=== PATIENT | male | born 1970 | race Caucasian/White ===

== ENCOUNTER 2021-03-03 20:52 | Inpatient (IN) | payer OTHER ==
[~2021-03-03] VITALS: Ht 182.9 cm; Wt 97.5 kg
[2021-03-03 21:18] LABS: HEMOGLOBIN 15.1 gm/dl (14.0-17.5); RED BLOOD COUNT 5.02 M/UL (4.20-5.50); WHITE BLOOD COUNT 15.1 K/UL (4.5-11.0)
[2021-03-03 21:46] LABS: BUN/CREATININE RATIO 23 (0-10)
[2021-03-04] MEDS ORDERED: PROAIR HFA8.5 GM INH (01:15)
[2021-03-04] MEDS ORDERED: ZESTRIL/PRINIVI10 MG PO (01:16)
[2021-03-04] MEDS ORDERED: PRAVASTATIN SOD20 MG PO (01:16)
[2021-03-04] MEDS ORDERED: LEVOTHYROXINE50 MC1 PO (01:17)
[2021-03-04 04:30] LABS: HEMOGLOBIN 14.3 gm/dl (14.0-17.5); RED BLOOD COUNT 4.84 M/UL (4.20-5.50); WHITE BLOOD COUNT 15.8 K/UL (4.5-11.0)
[2021-03-04 04:59] LABS: BUN/CREATININE RATIO 27 (0-10)
[2021-03-05 07:03] LABS: HEMOGLOBIN 13.5 gm/dl (14.0-17.5); RED BLOOD COUNT 4.57 M/UL (4.20-5.50); WHITE BLOOD COUNT 12.6 K/UL (4.5-11.0)
[2021-03-05 08:01] LABS: BUN/CREATININE RATIO 37 (0-10)
[2021-03-05] MEDS ORDERED: LOPRESSOR 25 MG25 MG PO ×2 (09:54→09:57)
[2021-03-05] MEDS ORDERED: ASPIRIN EC81 MG PO (09:54)
[2021-03-05] MEDS ORDERED: CRESTOR 10 MG T10 MG PO (09:54)
[2021-03-05] MEDS ORDERED: BRILINTA 90 MG90 MG PO (09:54)
== END 2021-03-05 12:05 | disposition home or self-care (01) | DRG 247 ==
LOC: ER1 20:52 → CDU 22:33 → PROG CARE 22:33
PROVIDERS: Family Medicine; Internal Medicine; ADMIT Internal Medicine
PROC: 027034Z Dilation of Coronary Artery, One Artery with Drug-eluting Intraluminal Device, Percutaneous Approach (ICD-10-PCS; principal; 2021-03-03)
PROC: 4A023N7 Measurement of Cardiac Sampling and Pressure, Left Heart, Percutaneous Approach (ICD-10-PCS; 2021-03-03)
PROC: B2111ZZ Fluoroscopy of Multiple Coronary Arteries using Low Osmolar Contrast (ICD-10-PCS; 2021-03-03)
DX: I21.4 Non-ST elevation (NSTEMI) myocardial infarction (principal); I10 Essential (primary) hypertension; E78.5 Hyperlipidemia, unspecified; F17.210 Nicotine dependence, cigarettes, uncomplicated; Z20.822 Contact with and (suspected) exposure to COVID-19; I25.10 Atherosclerotic heart disease of native coronary artery without angina pectoris; E78.00 Pure hypercholesterolemia, unspecified; J44.9 Chronic obstructive pulmonary disease, unspecified; E03.9 Hypothyroidism, unspecified; Z82.49 Family history of ischemic heart disease and other diseases of the circulatory system; Z79.01 Long term (current) use of anticoagulants; Z79.82 Long term (current) use of aspirin; Z90.49 Acquired absence of other specified parts of digestive tract
CPT/HCPCS: 36415; 71045; 80048; 80053; 80061; 82550; 82553; 83735; 83874; 84439; 84443; 84484; 85025; 85610; 85730; 86140; 93005; 94664; 94760; 99285; C1725; C1769; C1874; C1887; C9600; J0461; J0583; J1644; J2250; J3010; J7040; Q9967; U0002

== ENCOUNTER 2021-05-07 21:13 | Observation (INO) | payer OTHER ==
[~2021-05-07] VITALS: Ht 188 cm; Wt 98.0 kg
[~2021-05-07 21:13] MED LIST: ASPIRIN EC81 MG PO; BRILINTA 90 MG90 MG PO; CRESTOR 10 MG T10 MG PO; LEVOTHYROXINE50 MC1 PO; LOPRESSOR 25 MG25 MG PO; PRAVASTATIN SOD20 MG PO; PROAIR HFA8.5 GM INH; ZESTRIL/PRINIVI10 MG PO
[2021-05-07 22:27] LABS: HEMOGLOBIN 14.8 gm/dl (14.0-17.5); RED BLOOD COUNT 4.99 M/UL (4.20-5.50)
[2021-05-07 22:53] LABS: BUN/CREATININE RATIO 16 (0-10)
[2021-05-08] MEDS ORDERED: METOPROLOL SUCC25 MG PO (01:12)
[2021-05-08] MEDS ORDERED: PRAVASTATIN SOD20 MG PO (01:12)
[2021-05-08] MEDS ORDERED: ISOSORBIDE MONO30 MG PO (14:05)
== END 2021-05-08 15:38 | disposition home or self-care (01) ==
LOC: ER1 21:13 → CDU 23:13 → MED SURG 4 23:13
PROVIDERS: Emergency Medicine; ADMIT Internal Medicine
DX: R07.89 Other chest pain (principal); I25.10 Atherosclerotic heart disease of native coronary artery without angina pectoris; I10 Essential (primary) hypertension; I25.2 Old myocardial infarction; J44.9 Chronic obstructive pulmonary disease, unspecified; J96.11 Chronic respiratory failure with hypoxia; E78.5 Hyperlipidemia, unspecified; E03.9 Hypothyroidism, unspecified; Z20.822 Contact with and (suspected) exposure to COVID-19; Z95.5 Presence of coronary angioplasty implant and graft; Z99.81 Dependence on supplemental oxygen; Z87.891 Personal history of nicotine dependence; Z79.82 Long term (current) use of aspirin; Z79.899 Other long term (current) drug therapy
CPT/HCPCS: 36415; 71045; 80053; 80061; 82550; 82553; 83036; 83874; 84484; 84550; 85025; 93005; 94640; 94664; 94760; 96372; 99285; G0378; J1650; U0002

== ENCOUNTER → 2021-10-06 | Outpatient (CLI) | payer OTHER ==
[~2021-10-06] MED LIST changes: +ISOSORBIDE MONO30 MG PO; +METOPROLOL SUCC25 MG PO
== END ==
LOC: HEART 5 13:53
DX: J44.9 Chronic obstructive pulmonary disease, unspecified (principal)
CPT/HCPCS: 94060; 94729

== ENCOUNTER 2022-03-23 23:51 | Observation (INO) | payer OTHER ==
[~2022-03-23] VITALS: Ht 190.5 cm; Wt 95.3 kg
[~2022-03-23 23:51] MED LIST changes: +COMBIVENT RESPIM4 GM INH; +LEVOTHYROXINE112 MCG PO; -LEVOTHYROXINE50 MC1 PO; +LIPITOR80 MG PO; +METOPROLOL TART25 MG PO; +NEOSPORIN OINT15 GM TOP; +NITROGLYCERIN0.4 MG SL; +OMNICEF 300 MG300 MG PO; +PRAVASTATIN SOD10 MG PO; +TRELEGY ELLIPT1 EACH INH; +ZESTRIL2.5 MG PO; +ZITHROMAX500 MG PO
[2022-03-24 00:07] LABS: HEMOGLOBIN 14.8 gm/dl (14.0-17.5); RED BLOOD COUNT 5.08 M/UL (4.20-5.50); WHITE BLOOD COUNT 10.4 K/UL (4.5-11.0)
[2022-03-24 00:30] LABS: BUN/CREATININE RATIO 15 (0-10)
[2022-03-24] MEDS ORDERED: METOPROLOL TART25 MG PO (09:20)
[2022-03-24] MEDS ORDERED: PRAVASTATIN SOD20 MG PO (09:21)
[2022-03-24] MEDS ORDERED: PROTONIX 40 MG40 M1 PO (09:21)
[2022-03-24] MEDS ORDERED: ROBAXIN 750 MG750 MG PO (09:21)
[2022-03-24] MEDS ORDERED: RANEXA500 MG PO (10:46)
[2022-03-24] MEDS ORDERED: ATORVASTATIN CA20 MG PO (10:46)
[2022-03-24] MEDS ORDERED: ISOSORBIDE MONO60 MG PO (10:46)
== END 2022-03-24 12:20 | disposition left against medical advice (07) ==
LOC: ER1 23:51 → CDU 03-24 02:14
PROVIDERS: ADMIT Internal Medicine
DX: R07.89 Other chest pain (principal); I25.10 Atherosclerotic heart disease of native coronary artery without angina pectoris; J60 Coalworker's pneumoconiosis; I10 Essential (primary) hypertension; E78.5 Hyperlipidemia, unspecified; I16.0 Hypertensive urgency; R00.1 Bradycardia, unspecified; J44.9 Chronic obstructive pulmonary disease, unspecified; E03.9 Hypothyroidism, unspecified; Z87.891 Personal history of nicotine dependence; Z95.5 Presence of coronary angioplasty implant and graft
CPT/HCPCS: 71045; 80053; 82550; 82553; 84484; 85025; 93005; 99285; G0378